=== PATIENT | female | born 1955 | race Caucasian/White ===

== ENCOUNTER 2024-02-26 06:29 | Emergency (ER) | payer MEDICARE, OTHER, SELFPAY ==
[2024-02-26 06:31] VITALS: BP 188/119
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
[2024-02-26 08:39] VITALS: BP 152/98
[2024-02-26] MEDS: TOBREX 0.3% EYE OINTMENT 1 APPLIC OPHTH (08:46)
== END 2024-02-26 08:55 | disposition home or self-care (01) ==
LOC: EMR 06:29
PROVIDERS: EMERGENCY PHYSICIAN Emergency Medicine; FAMILY PHYSICIAN Family Medicine
DX: H16.9 Unspecified keratitis (principal)
CPT/HCPCS: 99282